=== PATIENT | male | born 1965 | race Two or more races ===

== ENCOUNTER 2022-11-14 14:29 | Emergency (ER) | payer OTHER ==
[~2022-11-14] VITALS: Ht 177.8 cm; Wt 93.0 kg
[2022-11-14] MEDS ORDERED: [UNRECOGNIZED DRUG - REMARK] (15:24)
== END 2022-11-14 17:05 | disposition home or self-care (01) ==
LOC: ER 14:29
PROVIDERS: General Practice
DX: J32.9 Chronic sinusitis, unspecified (principal); Z20.822 Contact with and (suspected) exposure to COVID-19